=== PATIENT | male | born 1995 | race Caucasian/White ===

== ENCOUNTER 2017-07-21 23:03 | Emergency (ER) | payer OTHER ==
--- NOTE | 2017-07-21 23:15 | PDOC ---
History of Present Illness - General History Source: Patient, EMS Exam Limitations: No Limitations - History of Present Illness Initial Comments: 07/21/17 23:51 The patient is a 21 year old male brought via EMS from [facility], with a significant past medical history of polysubstance abuse, who presents to the emergency department after being found unresponsive with an ovedose on heroin today. EMS states that the patient [facility] when he became unresponsive. He was given two doses of Narcan which awoke the patient. The patient refuses to answer questions. Allergies: None Past surgical history: None reported Social history: Heroin use <Lit Barboza - Last Filed: 07/21/17 23:51> <Beatriz Sanchez - Last Filed: 07/22/17 03:05> - General Chief Complaint: Overdose Stated Complaint: OVERDOSE Time Seen by Provider: 07/21/17 23:10 Past History <Lit Barboza - Last Filed: 07/21/17 23:51> <Beatriz Sanchez - Last Filed: 07/22/17 03:05> - Past Medical History Allergies/Adverse Reactions: Allergies Allergy/AdvReac Type Severity Reaction Status Date / Time No Known Allergies Allergy Verified 07/21/17 23:13 Home Medications: Ambulatory Orders NK [No Known Home Medication] 07/21/17 Review of Systems - Review of Systems Able to Perform ROS?: Yes Comments:: 07/21/17 23:51 GENERAL/CONSTITUTIONAL: No fever or chills. No weakness. HEAD, EYES, EARS, NOSE AND THROAT: No change in vision. No ear pain or discharge. No sore throat.- CARDIOVASCULAR: No chest pain or shortness of breath RESPIRATORY: No cough, wheezing, or hemoptysis. GASTROINTESTINAL: No nausea, vomiting, diarrhea or constipation. GENITOURINARY: No dysuria, frequency, or change in urination. MUSCULOSKELETAL: No joint or muscle swelling or pain. No neck or back pain. SKIN: No rash NEUROLOGIC: No headache, vertigo, loss of consciousness, or change in strength/ sensation. ENDOCRINE: No increased thirst. No abnormal weight change HEMATOLOGIC/LYMPHATIC: No anemia, easy bleeding, or history of blood clots. ALLERGIC/IMMUNOLOGIC: No hives or skin allergy. <Lit Barboza - Last Filed: 07/21/17 23:51> *Physical Exam - Vital Signs Last Vital Signs Temp Pulse Resp BP Pulse Ox 97.4 F L 107 H 16 115/94 98 07/21/17 23:14 07/21/17 23:14 07/21/17 23:14 07/21/17 23:14 07/21/17 23:14 - Physical Exam Comments: 07/21/17 23:51 GENERAL: Awake, alert, and fully oriented, in no acute distress HEAD: No signs of trauma, normocephalic, atraumatic EYES: PERRLA, EOMI, sclera anicteric, conjunctiva clear ENT: Auricles normal inspection, hearing grossly normal, nares patent, oropharynx clear without exudates. Moist mucosa NECK: Normal ROM, supple, no lymphadenopathy, JVD, or masses LUNGS: No distress, speaks full sentences, clear to auscultation bilaterally HEART: Regular rate and rhythm, normal S1 and S2, no murmurs, rubs or gallops, peripheral pulses normal and equal bilaterally. ABDOMEN: Soft, nontender, normoactive bowel sounds. No guarding, no rebound. No masses EXTREMITIES : Normal inspection, Normal range of motion, no edema. No clubbing or cyanosis. NEUROLOGICAL: Cranial nerves II through XII grossly intact. Normal speech, normal gait, no focal sensorimotor deficits SKIN: Warm, Dry, normal turgor, no rashes or lesions noted. <Lit Barboza - Last Filed: 07/21/17 23:51> ED Treatment Course - LABORATORY CBC & Chemistry Diagram: 07/21/17 23:31 07/21/17 23:31 - ADDITIONAL ORDERS Additional order review: 07/21/17 23:31 RBC 5.04 MCV 86.1 MCHC 33.8 RDW 13.7 MPV 7.5 Neutrophils % 48.3 Lymphocytes % 41.7 H Monocytes % 7.6 Eosinophils % 1.8 Basophils % 0.6 <Lit Barboza - Last Filed: 07/21/17 23:51> - LABORATORY CBC & Chemistry Diagram: 07/21/17 23:31 07/21/17 23:31 <Beatriz Sanchez - Last Filed: 07/22/17 03:05> Medical Decision Making - Medical Decision Making 07/22/17 00:24 This 21-year-old male was brought in by ambulance from [facility] because he became unresponsive in their intake area. He initially presented for heroin detox, but then became unresponsive. He was given 0.8 mg of Narcan and became alert. 91 was called. He was brought to [facility]. Upon arrival, he is very agitated and forcefully moving all of his extremities. He would not participate enough to give any past medical history or tell us what he took On exam, his lungs are clear to auscultation. CVS regular rate and rhythm S1, S2 Abdomen was flat, nontender. Extremities with full range of motion, no deformities Hep-Lock was placed. Patient was given IV fluids and drug screen was sent 07/22/17 03:03 pt now alert nd convresant He is not flailing around Called [facility] and spoke with DANIKA Squires and DELILAH MOORE and they said to sent the pt back <Beatriz Sanchez - Last Filed: 07/22/17 03:05> *DC/Admit/Observation/Transfer - Attestations Scribe Attestion: 07/21/17 23:51 Documentation prepared by Lit Barboza, acting as medical service technician for Beatriz Sanchez MD <Lit Barboza - Last Filed: 07/21/17 23:51> <Beatriz Sanchez - Last Filed: 07/22/17 03:05> Diagnosis at time of Disposition: Heroin overdose Qualifiers: Encounter type: initial encounter Injury intent: undetermined intent Qualified Code(s): T40.1X4A - Poisoning by heroin, undetermined, initial encounter - Discharge Dispostion Disposition: HOME Condition at time of disposition: Stable - Patient Instructions Printed Discharge Instructions: DI for Drug Abuse and Drug Addiction Additional Instructions: Stop using heroin
[2017-07-21 23:18] VITALS: BP 115/94; PULSE 107; TEMP 97.4; BMI 20.9
[2017-07-21] MEDS ORDERED: ONDANSETRON 4 MG/2 ML VIAL ONE (23:18)
[2017-07-21 23:38] LABS: BASOPHIL 0.6 % (0-2.0); EOSINOPHIL 1.8 % (0-4.5); MCH 29.1 pg (25.7-33.7); MCHC 33.8 g/dl (32.0-35.9); MEAN CELL VOLUME 86.1 fl (80-96); MEAN PLT VOLUME 7.5 fl (7.5-11.1); NEUTROPHILS 48.3 % (42.8-82.8); PLATELET COUNT 246 K/MM3 (134-434); RDW 13.7 % (11.9-15.9); WHITE BLOOD COUNT 6.5 K/mm3 (4.0-10.0)
[2017-07-22 00:15] LABS: ALBUMIN 4.5 g/dl (3.4-5.0); BILIRUBIN,TOTAL 0.3 mg/dL (0.2-1.0); CALCIUM 9.4 mg/dL (8.5-10.1); CO2 27 mmol/L (21-32); CREATININE 0.7 mg/dL (0.7-1.3); GLUCOSE,RANDOM 81 mg/dL (74-106); SGOT/AST 15 U/L (15-37); SGPT/ALT 20 U/L (12-78); TOT PROT 7.7 g/dl (6.4-8.2)
[2017-07-22 00:28] LABS: URINE MARIJUANA THC NEGATIVE ng/ml (CUTOFF=50)
[2017-07-22 00:46] LABS: ANION GAP 10 (8-16)
[2017-07-22 00:47] LABS: ALK PHOS 86 U/L (45-117)
[2017-07-22] MEDS ORDERED: NALOXONE HCL 0.4 MG/ML VIAL IVPUSH STA (01:08)
[2017-07-22] MEDS ORDERED: NALOXONE HCL 0.4 MG/ML VIAL ONE (01:52)
== END 2017-07-22 03:45 | disposition home or self-care (01) ==
LOC: JER 23:03
PROC: 3E033GC Introduction of Other Therapeutic Substance into Peripheral Vein, Percutaneous Approach (ICD-10-PCS; principal; 2017-07-21)
DX: T40.1X4A Poisoning by heroin, undetermined, initial encounter (principal)
CPT/HCPCS: 36415; 80053; 80307; 85025; 99282-25